=== PATIENT | female | born 1955 | race Two or more races ===

== ENCOUNTER 2025-01-06 16:09 | Inpatient (IN) | payer OTHER ==
[~2025-01-06] VITALS: Ht 165.1 cm; Wt 125.2 kg
[2025-01-06 17:06] LABS: BASOPHILS % (AUTO) 0.5 % (0.0-2.0); EOSINOPHILS % (AUTO) 3.1 % (1.0-6.0); HEMOGLOBIN 10.6 g/dL (12.0-16.0); LYMPHOCYTES # (AUTO) 0.8 K/uL (1.0-4.8); LYMPHOCYTES % (AUTO) 10.8 % (22.0-44.0); MEAN CORPUSCULAR HEMOGLOBIN 30.4 pg (26.0-34.0); MEAN CORPUSCULAR HGB CONC 32.3 G/dL (31.0-37.0); MEAN CORPUSCULAR VOLUME 94 fL (80-100); MONOCYTES # (AUTO) 0.4 K/uL (0.1-1.0); MONOCYTES % (AUTO) 5.1 % (2.0-9.0); NEUTROPHILS # (AUTO) 5.8 K/uL (1.8-7.7); NEUTROPHILS % (AUTO) 80.5 % (40.0-70.0); PLATELET COUNT (AUTO) 178 K/uL (150-450); WHITE BLOOD COUNT (AUTO) 7.1 K/uL (4.5-11.0)
[2025-01-06 17:14] LABS: ANION GAP 7 mmol/L (8-16); CALCIUM, TOTAL 9.4 mg/dL (8.8-10.5); CARBON DIOXIDE 30 mmol/L (22-29); CHLORIDE 108 mmol/L (98-107); CREATININE 1.37 mg/dL (0.60-1.30); GLOMERULAR FILTR. RATE CALC 38 mL/min (>60); GLUCOSE,RANDOM 106 mg/dL (70-110); POTASSIUM 4.3 mmol/L (3.5-5.1); SODIUM SERUM 145 mmol/L (136-145); UREA NITROGEN, BLOOD 46 mg/dL (7-18)
[2025-01-06 17:23] LABS: ALCOHOL, BLOOD (SERUM) < 3 mg/dL (0-10)
[2025-01-06 18:19] LABS: ALCOHOL, URINE DRUG SCREEN NEGATIVE (NEGATIVE); AMPHET/METH SCREEN,URINE NEGATIVE (NEGATIVE); APPEARANCE,URINE CLEAR (CLEAR); BARBITURATE SCREEN, URINE NEGATIVE (NEGATIVE); BENZODIAZEPINES SCREEN,URINE NEGATIVE (NEGATIVE); BILIRUBIN,URINE NEGATIVE (NEGATIVE); CANNABINOID SCREEN,URINE NEGATIVE (NEGATIVE); COCAINE SCREEN,URINE NEGATIVE (NEGATIVE); COLOR,URINE LIGHT YELLOW (YELLOW); GLUCOSE, URINE (UA) NEGATIVE (NEGATIVE); KETONES,URINE NEGATIVE (NEGATIVE); LEUKOCYTE ESTERASE ,URINE SMALL (NEGATIVE); METHADONE SCREEN, URINE NEGATIVE (NEGATIVE); NITRATE,URINE NEGATIVE (NEGATIVE); OCCULT BLOOD,URINE MODERATE (NEGATIVE); OPIATE SCREEN,URINE NEGATIVE (NEGATIVE); PH,URINE 5.5 (5.0-8.0); PHENCYCLIDINE SCREEN,URINE NEGATIVE (NEGATIVE); PROTEIN,URINE NEGATIVE (NEGATIVE); SPECIFIC GRAVITIY, URINE 1.015 (1.003-1.030); UROBILINOGEN,URINE <=1.0 mg/dL (<=1.0)
[2025-01-06 18:20] LABS: COVID AG,FIA SOURCE NASAL SWAB
[2025-01-06 18:30] LABS: PH,URINE DRUG SCREEN 5.5 (5.0-8.0)
[2025-01-06 18:56] LABS: BACTERIA,URINE Few /HPF (None Seen); SQUAMOUS EPITHELIAL CELL,UR Few /LPF (None Seen)
[2025-01-06 18:58] LABS: SARS-COV2 (COVID) ANTIGEN,FIA Negative (Negative)
[2025-01-06] MEDS: CefTRIAXone 1 GM/DEXTROSE 50 ML IV ONE (20:59)
[2025-01-06] MEDS ORDERED: DEXTROSE 50%-WATER 25 GM/50 ML SYRINGE IVP PRN (21:15)
[2025-01-06] MEDS ORDERED: ONDANSETRON HCL 4 MG/2 ML VIAL IVP PRN (21:15)
[2025-01-06] MEDS ORDERED: INSULIN LISPRO 100 UNITS/ML SQ PRN (21:15)
[2025-01-06] MEDS: PIPERACILLIN/TAZO 3.375 GM/D5W 50 ML IV SCH (22:08)
[2025-01-06 23:35] VITALS: BP 139/54; PULSE 60; RESP 20; TEMP 98.1; O2SAT 100
[2025-01-07] MEDS: HEPARIN SODIUM,PORCINE 5,000 UNITS/ML VIAL SQ SCH (00:01)
[2025-01-07] MEDS ORDERED: BISA10SU61 PR (00:33)
[2025-01-07] MEDS ORDERED: LEVO50 PO (00:37)
[2025-01-07] MEDS ORDERED: QUET25TA PO (00:40)
[2025-01-07] MEDS ORDERED: ACET-784 PO (00:41)
[2025-01-07] MEDS ORDERED: ONDA-104 PO (00:42)
[2025-01-07] MEDS ORDERED: ATOR40TA71 PO (00:44)
[2025-01-07] MEDS ORDERED: CITA10TA99 PO (00:46)
[2025-01-07] MEDS ORDERED: CLOP75TA33 PO (00:47)
[2025-01-07] MEDS ORDERED: DOCU-385 PO (00:49)
[2025-01-07] MEDS ORDERED: ASPI81TA87 PO (00:50)
[2025-01-07] MEDS ORDERED: MAGN-169 PO (00:52)
[2025-01-07] MEDS ORDERED: FAMO20 PO (00:53)
[2025-01-07] MEDS: ISOSORBIDE MONONITRATE 30 MG ER TABLET PO ONE (01:36)
[2025-01-07] MEDS ORDERED: SODIUM CHLORIDE 0.9% 500 ML IV ONE (01:45)
[2025-01-07 03:55] VITALS: BP 121/58; PULSE 63; RESP 20; TEMP 97.7; O2SAT 98
[2025-01-07 07:00] LABS: GLUCOMETER DEV NAME(LOC) 6S.2; GLUCOSE,POINT OF CARE 106 MG/DL (70-110)
[2025-01-07] MEDS: ACETAMINOPHEN 325 MG TABLET PO PRN (07:19)
[2025-01-07 07:42] LABS: BASOPHILS % (AUTO) 0.3 % (0.0-2.0); EOSINOPHILS % (AUTO) 3.8 % (1.0-6.0); HEMATOCRIT 31.6 % (36-46); HEMOGLOBIN 10.2 g/dL (12.0-16.0); LYMPHOCYTES # (AUTO) 0.4 K/uL (1.0-4.8); LYMPHOCYTES % (AUTO) 5.4 % (22.0-44.0); MEAN CORPUSCULAR HEMOGLOBIN 30.4 pg (26.0-34.0); MEAN CORPUSCULAR HGB CONC 32.3 G/dL (31.0-37.0); MEAN CORPUSCULAR VOLUME 94 fL (80-100); MONOCYTES # (AUTO) 0.2 K/uL (0.1-1.0); MONOCYTES % (AUTO) 2.9 % (2.0-9.0); NEUTROPHILS # (AUTO) 6.9 K/uL (1.8-7.7); PLATELET COUNT (AUTO) 164 K/uL (150-450); RED BLOOD CELL COUNT(AUTO) 3.36 MIL/uL (4.00-5.20); RED CELL DISTRIBUTION WIDTH 16.8 % (11.5-14.5); WHITE BLOOD COUNT (AUTO) 7.8 K/uL (4.5-11.0)
[2025-01-07 07:43] LABS: NEUTROPHILS % (AUTO) 87.6 % (40.0-70.0)
[2025-01-07 07:49] LABS: CALCIUM, TOTAL 9.4 mg/dL (8.8-10.5); CREATININE 1.27 mg/dL (0.60-1.30); MAGNESIUM 2.2 mg/dL (1.80-2.40); POTASSIUM 4.5 mmol/L (3.5-5.1)
[2025-01-07 08:02] VITALS: BP 115/58; PULSE 80; RESP 18; TEMP 98.2; O2SAT 100
[2025-01-07] MEDS: DOCUSATE SODIUM 100 MG CAPSULE PO SCH (08:13)
[2025-01-07 16:25] VITALS: BP 133/76; PULSE 87; RESP 19; TEMP 97.6; O2SAT 99
[2025-01-07 19:51] LABS: GLUCOMETER DEV NAME(LOC) 6S.2; GLUCOSE,POINT OF CARE 114 MG/DL (70-110)
[2025-01-07 20:19] VITALS: BP 118/50; PULSE 68; RESP 18; TEMP 98.2; O2SAT 99
[2025-01-07] MEDS: ISOSORBIDE MONONITRATE 30 MG ER TABLET PO SCH (20:50)
[2025-01-07] MEDS: INSULIN GLARGINE,HUM.REC.ANLOG 100 UNITS/ML SQ SCH (20:53)
[2025-01-07 23:26] LABS: GLUCOMETER DEV NAME(LOC) 6S.1D; GLUCOSE,POINT OF CARE 115 MG/DL (70-110)
[2025-01-08 05:04] VITALS: BP 116/63; PULSE 61; RESP 18; TEMP 97.5; O2SAT 99
[2025-01-08 09:00] VITALS: BP 134/57; PULSE 63; RESP 18; TEMP 97.6; O2SAT 99
[2025-01-08 19:01] LABS: GLUCOMETER DEV NAME(LOC) 6S.2; GLUCOSE,POINT OF CARE 96 MG/DL (70-110)
[2025-01-08 20:28] VITALS: BP 125/53; PULSE 67; RESP 18; TEMP 98.2; O2SAT 98
[2025-01-09 06:12] VITALS: BP 113/69; PULSE 77; RESP 18; TEMP 98.1; O2SAT 95
[2025-01-09 08:40] VITALS: BP 112/52; PULSE 65; RESP 20; TEMP 98.1; O2SAT 96
[2025-01-09 10:00] LABS: GLUCOMETER DEV NAME(LOC) 6N.2B; GLUCOSE,POINT OF CARE 79 MG/DL (70-110)
[2025-01-09 10:05] LABS: GLUCOMETER DEV NAME(LOC) 6S.2; GLUCOSE,POINT OF CARE 110 MG/DL (70-110)
[2025-01-09 13:00] LABS: BASOPHILS % (AUTO) 0.7 % (0.0-2.0); EOSINOPHILS % (AUTO) 3.2 % (1.0-6.0); HEMATOCRIT 30.1 % (36-46); HEMOGLOBIN 9.9 g/dL (12.0-16.0); LYMPHOCYTES # (AUTO) 0.7 K/uL (1.0-4.8); LYMPHOCYTES % (AUTO) 12.6 % (22.0-44.0); MEAN CORPUSCULAR HGB CONC 32.9 G/dL (31.0-37.0); MEAN CORPUSCULAR VOLUME 94 fL (80-100); MONOCYTES # (AUTO) 0.4 K/uL (0.1-1.0); MONOCYTES % (AUTO) 6.1 % (2.0-9.0); NEUTROPHILS # (AUTO) 4.5 K/uL (1.8-7.7); NEUTROPHILS % (AUTO) 77.4 % (40.0-70.0); PLATELET COUNT (AUTO) 165 K/uL (150-450); WHITE BLOOD COUNT (AUTO) 5.8 K/uL (4.5-11.0)
[2025-01-09] MEDS ORDERED: INSU100V SQ (14:03)
[2025-01-09 17:00] VITALS: BP 104/54; PULSE 62; RESP 18; TEMP 98.4; O2SAT 98
[2025-01-09 20:12] VITALS: BP 114/58; PULSE 67; RESP 18; TEMP 98.4; O2SAT 96
[2025-01-10 06:05] VITALS: BP 110/56; PULSE 93; RESP 20; TEMP 98.2; O2SAT 99
[2025-01-10 07:58] VITALS: BP 108/74; PULSE 78; RESP 18; TEMP 98.6; O2SAT 95
[2025-01-10] MEDS ORDERED: AMPICILLIN SODIUM 1 GM/NS 50 ML IV SCH (14:00)
[2025-01-10 15:51] VITALS: BP 115/55; PULSE 61; RESP 20; TEMP 98.1; O2SAT 96
[2025-01-10 20:35] LABS: GLUCOMETER DEV NAME(LOC) 6S.1D; GLUCOSE,POINT OF CARE 88 MG/DL (70-110)
[2025-01-10 20:35] LABS: GLUCOMETER DEV NAME(LOC) 6S.1D; GLUCOSE,POINT OF CARE 119 MG/DL (70-110)
[2025-01-10 20:35] LABS: GLUCOMETER DEV NAME(LOC) 6S.1D; GLUCOSE,POINT OF CARE 91 MG/DL (70-110)
[2025-01-11 02:05] LABS: GLUCOMETER DEV NAME(LOC) 6S.2; GLUCOSE,POINT OF CARE 87 MG/DL (70-110)
[2025-01-11 02:05] LABS: GLUCOMETER DEV NAME(LOC) 6S.2; GLUCOSE,POINT OF CARE 61 MG/DL (70-110)
== END 2025-01-10 19:38 | DRG 466 ==
LOC: EMS 16:13 → EDH 21:07 → 6S 23:17
PROVIDERS: ADMIT Internal Medicine; ATTEND Internal Medicine
DX: T83.518A Infection and inflammatory reaction due to other urinary catheter, initial encounter (principal); G93.41 Metabolic encephalopathy; E87.3 Alkalosis; I49.5 Sick sinus syndrome; E11.22 Type 2 diabetes mellitus with diabetic chronic kidney disease; B95.2 Enterococcus as the cause of diseases classified elsewhere; E03.9 Hypothyroidism, unspecified; E66.01 Morbid (severe) obesity due to excess calories; Z20.822 Contact with and (suspected) exposure to COVID-19; N39.0 Urinary tract infection, site not specified; M79.604 Pain in right leg; Y84.6 Urinary catheterization as the cause of abnormal reaction of the patient, or of later complication, without mention of misadventure at the time of the procedure; E78.00 Pure hypercholesterolemia, unspecified; I12.9 Hypertensive chronic kidney disease with stage 1 through stage 4 chronic kidney disease, or unspecified chronic kidney disease; N18.30 Chronic kidney disease, stage 3 unspecified; I69.398 Other sequelae of cerebral infarction; Y92.89 Other specified places as the place of occurrence of the external cause; Z74.01 Bed confinement status
CPT/HCPCS: 70450; 80048; 80307; 81001; 82962; 83735; 85025; 87077; 87081; 87086; 87186; 97116; 97162; 97530; 99285; G0480; J0290; J0696; J1644; J1815; J2543; J7040